=== PATIENT | female | born 1985 | race Hispanic/Latino ===

== ENCOUNTER → 2019-04-01 | Day surgery (SDC) | payer BC ==
[2019-03-31 14:06] LABS: BASOPHILS % 0.4 % (0.0-1.0); EOSINOPHILS # (AUTO) 0.4 (0.0-0.4); EOSINOPHILS % 5.4 % (0.0-6.0); HEMATOCRIT 37.5 % (34.2-44.1); HEMOGLOBIN 12.6 g/dL (12.0-16.0); LYMPHOCYTES # (AUTO) 1.7 (1.0-3.2); LYMPHOCYTES % 24.5 % (18.0-39.1); MEAN CORPUSCULAR HEMOGLOBIN 28.8 pg (28-32); MEAN CORPUSCULAR HGB CONC 33.6 g/dL (31-35); MEAN CORPUSCULAR VOLUME 85.8 fL (81-99); MONOCYTES # (AUTO) 0.4 (0.2-0.8); MONOCYTES % 5.2 % (4.4-11.3); NEUTROPHILS # (AUTO) 4.5 (2.1-6.9); NEUTROPHILS % 64.4 % (38.7-80.0); PLATELET COUNT 217 x10e3/uL (140-360); RED BLOOD COUNT 4.37 x10e6/uL (3.6-5.1); RED CELL DISTRIBUTION WIDTH 12.6 % (11.7-14.4)
[2019-03-31 14:19] LABS: CLARITY,URINE SL CLOUDY (CLEAR); COLOR,URINE YELLOW (YELLOW)
[2019-03-31 14:20] LABS: BILIRUBIN,URINE NEGATIVE (NEGATIVE); KETONES,URINE 1+ (NEGATIVE); LEUKOCYTE ESTERASE ,URINE NEGATIVE (NEGATIVE); NITRITE,URINE NEGATIVE (NEGATIVE); PROTEIN,URINE DIPSTICK NEGATIVE (NEGATIVE); URINE UROBILINOGEN 0.2 mg/dL (0.2 - 1)
[~2019-04-01] MED LIST: ACETAMINOPHEN 1000 MG/100 ML IV ONE; ALBUTEROL0.63 MG/3 INH; CEFAZOLIN SOD 1 GM/NS 50ML 100 ML IV ONE; DEXAMETHASONE SOD PHOS INJ 4 MG/ML VIAL ONE; FENTANYL CITRATE/PF 100MCG/2 ML INJ ONE; KETOROLAC TROMETHAMINE 30 MG/ML VIAL ONE; LIDOCAINE HCL 2% LOCAL INJ 5 ML SDV VIAL INJ ONE; MEPERIDINE HCL INJ 25 MG/ML VIAL ONE; MIDAZOLAM HCL 2 MG/2 ML VIAL ONE; MISOPROSTOL 100 MCG TAB PO ONE; ONDANSETRON HCL INJ 2MG/ML 2ML 2 MG/ML VIAL ONE; OXYTOCIN INJ 10 UNIT/ML VIAL ONE; PROPOFOL IV EMULSION 10 MG/ML 20 ML VIAL ONE; SEVOFLURANE INHAL SOLN 250 ML PEN BTL ONE; SILVER NITRATE SWABS ONE; [UNRECOGNIZED DRUG - OTHER] PO
[2019-04-01 11:33] VITALS: BP 110/54
--- NOTE | 2019-04-01 15:50 | Operative Report ---
DATE OF PROCEDURE: 04/01/2019 SURGEON: Luis Flores MD PREOPERATIVE DIAGNOSIS: Missed , A positive blood type. POSTOPERATIVE DIAGNOSIS: Missed , A positive blood type. TITLE OF PROCEDURE: Dilatation and suction curettage. ANESTHESIA: General with Dr. Heller. INDICATION FOR OPERATION: The patient is a 33-year-old, 3, para 2-0-1-2 with last menstrual period in 2013 status post IUD removal on January 12, 2019 with positive test, February 27. Sono showed intrauterine . Followup sono for viability showed no heart tones. She is therefore here for a D and C secondary to missed . She is also known to be A positive blood type. She is therefore taken to the operating room at this time. FINDINGS OF SURGERY: There was an 8 to 10 week size uterus, mid position. The cervix was closed and products of conception were easily obtained on D and C with a #10 suction curette, and the uterus was well contracted after. DESCRIPTION OF PROCEDURE: The patient was taken to the operating room, placed on the table in supine position. General anesthesia was administered. The patient was placed in the lithotomy position. The perineum was prepared and draped in the usual sterile manner. Pelvic exam revealed an 8 to 10 week size, midposition uterus with no adnexal masses. A weighted speculum was placed in posterior vaginal wall. The bladder was drained by in and out catheterization. Then with the aid of a right angle retractor, the anterior lip of the cervix was grasped with single-tooth tenaculum. Then with Garza dilators the endocervical canal was dilated up to #33. Then, using a #10 suction curette, the endometrial cavity was curetted. Tissue was obtained and sent to pathology for definitive diagnosis. Curettage was continued until the uterine cry was felt on all four leach of the uterus. Then, the endometrial cavity was explored with a sharp curette. No further tissue was obtained. At this point, the procedure was deemed terminated. The uterus was well contracted and there was minimal bleeding. Therefore, the procedure was deemed terminated. All the instruments were removed from the vagina. There were no complications noted. Estimated blood loss was 25 mL. The patient tolerated the procedure well, was transferred from the operating room to the recovery room in stable condition. MD MONTSE Shah/KANU /[id number]
== END | disposition home or self-care (01) ==
LOC: OR 07:45
PROVIDERS: ATTEND Obstetrics & Gynecology
DX: O02.1 Missed abortion (principal); Z67.10 Type A blood, Rh positive; J45.909 Unspecified asthma, uncomplicated; F41.9 Anxiety disorder, unspecified; Z01.812 Encounter for preprocedural laboratory examination
CPT/HCPCS: 36415; 59820; 81003; 85025; 86850; 86900; 88305; C1758; J0131; J0690; J1100; J1885; J2001; J2175; J2250; J2405; J2590; J2704; J3010

== ENCOUNTER 2019-06-01 05:50 | Emergency (ER) | payer BC ==
[~2019-06-01] VITALS: Ht 160 cm; Wt 99.3 kg
[~2019-06-01 05:50] MED LIST changes: -ACETAMINOPHEN 1000 MG/100 ML IV ONE; -CEFAZOLIN SOD 1 GM/NS 50ML 100 ML IV ONE; -DEXAMETHASONE SOD PHOS INJ 4 MG/ML VIAL ONE; -FENTANYL CITRATE/PF 100MCG/2 ML INJ ONE; -KETOROLAC TROMETHAMINE 30 MG/ML VIAL ONE; -LIDOCAINE HCL 2% LOCAL INJ 5 ML SDV VIAL INJ ONE; -MEPERIDINE HCL INJ 25 MG/ML VIAL ONE; -MIDAZOLAM HCL 2 MG/2 ML VIAL ONE; -MISOPROSTOL 100 MCG TAB PO ONE; -ONDANSETRON HCL INJ 2MG/ML 2ML 2 MG/ML VIAL ONE; -OXYTOCIN INJ 10 UNIT/ML VIAL ONE; -PROPOFOL IV EMULSION 10 MG/ML 20 ML VIAL ONE; -SEVOFLURANE INHAL SOLN 250 ML PEN BTL ONE; -SILVER NITRATE SWABS ONE
[2019-06-01] MEDS ORDERED: ALBUTEROL/IPRATROPIUM 3 ML NEB NEB ONE (06:00)
[2019-06-01] MEDS ORDERED: METHYLPREDNISOLONE SOD SUCC 125 MG/2ML VIAL IM ONE (06:00)
[2019-06-01] MEDS ORDERED: METHYLPREDNISOLONE SOD SUCC 125 MG/2ML VIAL ONE (06:05)
--- NOTE | 2019-06-01 06:05 | NUR ---
RT CALLED AT THIS TIME FOR DUONEB TREATMENT.
== END 2019-06-01 06:30 | disposition home or self-care (01) ==
LOC: ER 05:50
DX: J45.31 Mild persistent asthma with (acute) exacerbation (principal); F41.9 Anxiety disorder, unspecified
CPT/HCPCS: 94640; 96372; 99282; J2930